=== PATIENT | female | born 1960 | race Caucasian/White ===

== ENCOUNTER 2019-04-06 08:43 | Inpatient (IN) | payer SELFPAY ==
[~2019-04-06] VITALS: Ht 172.7 cm; Wt 95.6 kg
[2019-04-06] VITALS (10 sets, daily range): BP systolic 39–109; BP diastolic 24–48
[2019-04-06] MEDS ORDERED: PANTOPRAZOLE 80 MG in SODIUM CHLORIDE 0.9% 100 ML IV SCH (08:56)
[2019-04-06] MEDS ORDERED: PANTOPRAZOLE 80 MG in SODIUM CHLORIDE 0.9% 50 ML IVPB ONE (08:56)
[2019-04-06] MEDS ORDERED: SODIUM CHLORIDE FLUSH 10ML SYR IVF ONE (09:00)
[2019-04-06] MEDS ORDERED: SODIUM CHLORIDE 0.9% 1,000ML IVBOLUS ONE ×2 (09:00→10:30)
[2019-04-06] MEDS ORDERED: OCTREOTIDE 100MCG/ML, 1ML (0.1MG/ML) IV ONE (09:00)
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
[2019-04-06] MEDS ORDERED: OCTREOTIDE 100MCG/ML, 1ML (0.1MG/ML) ONE (09:21)
--- NOTE | 2019-04-06 09:32 | NUR ---
PT MEDICATED PER MAR. PT CLEANSED AND SOILED CLOTHING REMOVED, PANTS THROWN IN TRASH PER PT REQUEST. GUAIC COMPLETED, + OCCULT STOOL AND ALSO STOOL WITH BRIGHT RIGHT BLOOD, ERMD UPDATED.
[2019-04-06 09:37] LABS: MEAN CORPUSCULAR HEMOGLOBIN 37.8 pg (27.0-34.8); MEAN CORPUSCULAR HGB CONC 33.5 g/dL (32.4-35.8); MEAN CORPUSCULAR VOLUME 112.8 fL (80-100); MEAN PLATELET VOLUME 8.9 fL (7.4-10.4); PLATELET COUNT 80 x10^3/uL (130-400); RED BLOOD COUNT 1.58 x10^6/uL (3.82-5.3); RED CELL DISTRIBUTION WIDTH 17.4 % (9.6-15.2)
[2019-04-06 09:41] LABS: ALANINE AMINOTRANSFERASE 37 U/L (12-78); ALBUMIN 1.1 g/dL (3.4-5.0); ANION GAP 22 mmol/L (5-15); CALCIUM 7.6 mg/dL (8.5-10.1); CHLORIDE 109 mmol/L (98-107); CREATININE 1.53 mg/dL (0.55-1.02)
[2019-04-06 09:46] LABS: ALKALINE PHOSPHATASE 176 U/L (45-117); BILIRUBIN,TOTAL 10.3 mg/dL (0.2-1.0); TOTAL PROTEIN 5.2 g/dL (6.4-8.2)
[2019-04-06 09:49] LABS: MD YES
[2019-04-06 09:55] LABS: BAND#(MANUAL) 0.22 x10^3/uL; BANDS%(MANUAL) 2 % (0-7); BASOS#(MANUAL) 0.11 x10^3/uL (0-0.1); BASOS% (MANUAL) 1 % (0-1); LYMPH#(MANUAL) 0.76 x10^3/uL (1-3.4); LYMPHS% (MANUAL) 7 % (22-44); MONOS#(MANUAL) 0.43 x10^3/uL (0.3-2.7); MONOS% (MANUAL) 4 % (2-9); NRBC % (MANUAL) 1 % (0-1); SEG#(MANUAL) 9.29 x10^3/uL (1.8-6.8); SEGS% (MANUAL) 86 % (42-75)
[2019-04-06 09:56] LABS: ANISOCYTOSIS 1+; ROULEAUX 1+
--- NOTE | 2019-04-06 09:56 | NUR ---
LAB CALLED WITH CRITICAL RESULTS HGB 6.0/HCT 17.8 ER PROVIDER MADE AWARE. PT FINISHED FLUID BOLUS, PT STILL WITH BP 89/39, WILL UPDATE PROVIDER. PROTONIX BOLUS AND GTT STARTED
[2019-04-06 09:58] LABS: <PLATELET ESTIMATE> DECREASED; <PLT MORPHOLOGY> NORMAL PLT MORPH; POLYCHROMASIA 1+
[2019-04-06 09:59] LABS: OVALOCYTES 1+
[2019-04-06 10:01] LABS: INTERNATIONAL NORMALIZED RATIO 2.74 (0.93-1.1)
--- NOTE | 2019-04-06 10:29 | NUR ---
ADDITIONAL BOLUS HUNG, PT STILL WITH BP 83/30. PRBC HUNG AT THIS TIME
[2019-04-06 10:33] LABS: PROTHROMBIN TIME 29.3 Seconds (9.6-11.5)
--- NOTE | 2019-04-06 10:50 | NUR ---
PT TO CT AT THIS TIME
[2019-04-06] MEDS ORDERED: OCTREOTIDE 500 MCG in SODIUM CHLORIDE 0.9% 99 ML IV PRN ×2 (11:00→23:00)
[2019-04-06] MEDS ORDERED: SODIUM CHLORIDE FLUSH 10ML SYR IVF PRN (11:00)
--- NOTE | 2019-04-06 11:10 | NUR ---
PT BACK FROM IMAGING, PRBC COMPLETED, FFP BEGAN. REQUEST SENT TO PHARM FOR OCTREOTIDE GTT ORDERED BY GI
[2019-04-06] MEDS ORDERED: OMNIPAQUE 350 MG/ML, 100ML BOTTLE ONE (11:20)
[2019-04-06] MEDS ORDERED: CEFTRIAXONE PMX 2GM/50ML 50 ML ONE (12:07)
[2019-04-06] MEDS: CEFTRIAXONE PMX 2GM/50ML 50 ML IV SCH (12:18)
--- NOTE | 2019-04-06 12:28 | NUR ---
LUNCH RN: VIRIDIANA BENITEZ PER APR. VARIFIED WITH ABOUT ABX, ORDERED FOR UPCOMING SCOPE PROPHALACTICALLY. VS TACHY HR, OTHER VS WNL. PT PLACED ON BED HOLLIDAY PER REQUEST. CHAPSTICK GIVEN FOR COMFORT. PT INFORMED OF NPO STATUS. CALL LIGHT WITHIN REACH. HOSPITAL BED ORDERED
--- NOTE | 2019-04-06 12:51 | NUR ---
PT PLACED ON HOSPITAL BED. CALL LIGHT IN REACH. VSS. NO OTHER NEEDS AT THIS TIME
--- NOTE | 2019-04-06 13:24 | NUR ---
DR RIVERA CALLED FOR ADDITIONAL ORDERS.
[2019-04-06] MEDS ORDERED: SODIUM CHLORIDE 0.9% 1,000 ML IV SCH (13:28)
[2019-04-06] MEDS ORDERED: BISACODYL 10 MG SUPP PR PRN (13:30)
[2019-04-06] MEDS ORDERED: POLYETHYLENE GLYCOL 17 GM PACKET PO PRN (13:30)
[2019-04-06] MEDS ORDERED: ACETAMINOPHEN 325 MG TABLET PO PRN (13:30)
[2019-04-06] MEDS ORDERED: OXYcodone IR 5MG TABLET PO PRN (13:30)
[2019-04-06] MEDS ORDERED: ONDANSETRON 2MG/ML, 2ML IVPush PRN (13:30)
--- NOTE | 2019-04-06 13:58 | NUR ---
ATTEMPTED TO CALL REPORT, RN TO CALL BACK
[2019-04-06] MEDS ORDERED: DEXTROSE 50%, 50ML SYRINGE IVPush ONE ×2 (14:20→16:30)
[2019-04-06] MEDS ORDERED: DEXTROSE 50%, 50ML SYRINGE ONE (14:20)
--- NOTE | 2019-04-06 14:20 | NUR ---
[facility] CHECKED READING OF 28, DR RIVERA CALLED. ORDER FOR AMP D50. PT MEDICATED PER APR. PT THEN WITH LARGE INCONTINENT BM IN BED, PT CLEANED AND REPOSITIONED. FSBS RECHECKED 138 READ. RECIEVING RN UPDATED
[2019-04-06] MEDS ORDERED: MIDAZOLAM 1 MG/ML, 5ML ONE (15:10)
[2019-04-06] MEDS ORDERED: PROPOFOL 10 MG/ML, 100ML IV ONE (15:10)
[2019-04-06] MEDS ORDERED: ETOMIDATE 20 MG/10 ML ONE (15:10)
[2019-04-06] MEDS ORDERED: PHENOBARBITAL SODIUM 640 MG in SODIUM CHLORIDE 0.9% 50 ML IVPB ONE (15:30)
[2019-04-06] MEDS ORDERED: POTASSIUM CHLORIDE 20 MEQ, MAGNESIUM SULFATE 1 GM, THIAMINE 200 MG, FOLIC ACID 1 MG, MV... IV SCH (15:30)
[2019-04-06] MEDS ORDERED: POTASSIUM CHLORIDE 20 MEQ, MAGNESIUM SULFATE 1 GM, FOLIC ACID 1 MG, THIAMINE 200 MG, MV... IV SCH (15:30)
[2019-04-06] MEDS ORDERED: PHARMACY INSTRUCTION MC PRN ×4 (15:30)
[2019-04-06] MEDS ORDERED: SODIUM BICARBONATE 1 MEQ/ML, 50ML VIAL ONE (16:24)
[2019-04-06] MEDS: SODIUM BICARBONATE 1 MEQ/ML, 50ML VIAL IVPush SCH ×2 (16:28→19:08)
[2019-04-06] MEDS ORDERED: SODIUM BICARBONATE 8.4% 150 MEQ in DEXTROSE 5% 1,000 ML IV SCH (16:30)
[2019-04-06] MEDS ORDERED: PROPOFOL 100 ML IV PRN (16:50)
[2019-04-06] MEDS ORDERED: LIDOCAINE-MPF 1%, 2ML ENDO PRN (17:00)
[2019-04-06] MEDS ORDERED: FENTANYL PF 100 MCG/2ML IVPush PRN (17:00)
[2019-04-06] MEDS ORDERED: PHARMACY MAY ADJ FOR RENAL FX MC SCH (17:00)
[2019-04-06] MEDS ORDERED: NOREPINEPHRINE 1 MG/ML, 4ML ONE ×2 (17:01→17:10)
[2019-04-06] MEDS ORDERED: SODIUM BICARBONATE 1 MEQ/ML, 50ML VIAL IVPush SCH (19:00)
[2019-04-06] MEDS ORDERED: VASOPRESSIN 20 UNIT in SODIUM CHLORIDE 0.9% 99 ML IV PRN (19:30)
[2019-04-06] MEDS: VASOPRESSIN 20 UNIT in SODIUM CHLORIDE 0.9% 99 ML IV PRN (20:24)
[2019-04-06] MEDS: PANTOPRAZOLE 80 MG in SODIUM CHLORIDE 0.9% 100 ML IV SCH (21:29)
[2019-04-06] MEDS ORDERED: SODIUM BICARB 8.4%, 50ML SYRINGE IVPush STA (21:32)
[2019-04-06] MEDS ORDERED: PHENYLEPHRINE 50 MG in SODIUM CHLORIDE 0.9% 245 ML IV PRN (22:00)
[2019-04-06] MEDS ORDERED: ALBUMIN HUMAN 5% 500 ML IV ONE (22:00)
[2019-04-06] MEDS: SODIUM BICARBONATE 8.4% 150 MEQ in DEXTROSE 5% 1,000 ML IV SCH (23:41)
[2019-04-06] MEDS: NOREPINEPHRINE 8 MG in SODIUM CHLORIDE 0.9% 242 ML IV PRN (23:42)
[2019-04-07] VITALS (14 sets, daily range): BP systolic 90–165; BP diastolic 24–97
[2019-04-07] MEDS: VASOPRESSIN 20 UNIT in SODIUM CHLORIDE 0.9% 99 ML IV PRN (02:58)
[2019-04-07] MEDS: NOREPINEPHRINE 8 MG in SODIUM CHLORIDE 0.9% 242 ML IV PRN ×2 (04:19→08:35)
[2019-04-07] MEDS ORDERED: DEXTROSE 50%, 50ML SYRINGE IVPush ONE (05:30)
[2019-04-07 05:50] LABS: MICROSCOPIC INDICATED
[2019-04-07 05:51] LABS: CULTURE INDICATED? YES
[2019-04-07] MEDS: SODIUM BICARBONATE 8.4% 150 MEQ in DEXTROSE 5% 1,000 ML IV SCH (06:02)
[2019-04-07 06:20] LABS: MEAN CORPUSCULAR HEMOGLOBIN 37.5 pg (27.0-34.8); MEAN CORPUSCULAR HGB CONC 35.5 g/dL (32.4-35.8); MEAN CORPUSCULAR VOLUME 105.8 fL (80-100); MEAN PLATELET VOLUME 9.2 fL (7.4-10.4); RED BLOOD COUNT 1.34 x10^6/uL (3.82-5.3)
[2019-04-07 06:22] LABS: ALANINE AMINOTRANSFERASE 585 U/L (12-78); ALBUMIN 1.3 g/dL (3.4-5.0); ANION GAP 26 mmol/L (5-15); CALCIUM 6.2 mg/dL (8.5-10.1); CHLORIDE 107 mmol/L (98-107); CREATININE 2.91 mg/dL (0.55-1.02)
[2019-04-07 06:23] LABS: RED CELL DISTRIBUTION WIDTH 25.1 % (9.6-15.2)
[2019-04-07 06:24] LABS: PLATELET COUNT 32 x10^3/uL (130-400)
[2019-04-07] MEDS ORDERED: CALCIUM GLUCONATE 4.6 MEQ in SODIUM CHLORIDE 0.9% 100 ML IV ONE (06:30)
[2019-04-07] MEDS ORDERED: INSULIN REGULAR 100 UNITS/ML, 3ML VIAL IVPush ONE (06:30)
[2019-04-07] MEDS ORDERED: SODIUM POLYSTYRENE SULFONATE ORAL SUSP PO ONE (06:30)
[2019-04-07] MEDS ORDERED: SODIUM BICARBONATE 1 MEQ/ML, 50ML VIAL IVPush ONE (06:30)
[2019-04-07 06:31] LABS: ALKALINE PHOSPHATASE 137 U/L (45-117); BILIRUBIN,TOTAL 8.7 mg/dL (0.2-1.0); TOTAL PROTEIN 3.4 g/dL (6.4-8.2)
[2019-04-07 06:41] LABS: MD YES
[2019-04-07 06:44] LABS: ANISOCYTOSIS 1+; BAND#(MANUAL) 0.45 x10^3/uL; BANDS%(MANUAL) 3 % (0-7); LYMPH#(MANUAL) 2.24 x10^3/uL (1-3.4); LYMPHS% (MANUAL) 15 % (22-44); METAMYELOCYTES# (MANUAL) 0.15 x10^3/uL (0-0); METAMYELOCYTES% (MANUAL) 1 % (0-1); MONOS#(MANUAL) 0.45 x10^3/uL (0.3-2.7); MONOS% (MANUAL) 3 % (2-9); NRBC % (MANUAL) 2 % (0-1); REACTIVE LYMPHS # (MANUAL) 0.15 x10^3/uL (0-0); REACTIVE LYMPHS % (MANUAL) 1 % (0-0); SEG#(MANUAL) 11.47 x10^3/uL (1.8-6.8); SEGS% (MANUAL) 77 % (42-75)
[2019-04-07 06:45] LABS: <PLATELET ESTIMATE> DECREASED; <PLT MORPHOLOGY> NORMAL PLT MORPH; HYPOCHROMIA 1+; OVALOCYTES 1+; POLYCHROMASIA 1+
[2019-04-07] MEDS ORDERED: PHYTONADIONE 10 MG in SODIUM CHLORIDE 0.9% 50 ML IV ONE (07:30)
[2019-04-07] MEDS: PANTOPRAZOLE 80 MG in SODIUM CHLORIDE 0.9% 100 ML IV SCH (07:38)
[2019-04-07] MEDS ORDERED: SENNA/DOCUSATE TABLET PO SCH (09:00)
[2019-04-07] MEDS: CEFTRIAXONE PMX 2GM/50ML 50 ML IV SCH (10:46)
[2019-04-07] MEDS ORDERED: LORazepam 2 MG/ML, 1ML IV ONE (11:30)
[2019-04-07] MEDS ORDERED: LORazepam 2 MG/ML, 1ML IVPush PRN (11:30)
[2019-04-07] MEDS ORDERED: MORPHINE SULFATE 4 MG/ML, 1ML IV ONE (11:30)
[2019-04-07] MEDS ORDERED: MORPHINE SULFATE 4 MG/ML, 1ML IVPush PRN (11:30)
== END 2019-04-07 19:04 | disposition expired | DRG 208 ==
LOC: ED 09:41 → EDIP 11:03 → CCU 14:46 → CSU 04-07 14:10
PROVIDERS: ADMIT Internal Medicine; ATTEND Internal Medicine
PROC: 5A1935Z Respiratory Ventilation, Less than 24 Consecutive Hours (ICD-10-PCS; 2019-04-06)
PROC: 30233K1 Transfusion of Nonautologous Frozen Plasma into Peripheral Vein, Percutaneous Approach (ICD-10-PCS; 2019-04-06)
PROC: 30233N1 Transfusion of Nonautologous Red Blood Cells into Peripheral Vein, Percutaneous Approach (ICD-10-PCS; 2019-04-06)
PROC: 30233R1 Transfusion of Nonautologous Platelets into Peripheral Vein, Percutaneous Approach (ICD-10-PCS; 2019-04-06)
PROC: 0BH17EZ Insertion of Endotracheal Airway into Trachea, Via Natural or Artificial Opening (ICD-10-PCS; 2019-04-06)
PROC: 0T9B70Z Drainage of Bladder with Drainage Device, Via Natural or Artificial Opening (ICD-10-PCS; principal; 2019-04-07)
PROC: 02HV33Z Insertion of Infusion Device into Superior Vena Cava, Percutaneous Approach (ICD-10-PCS; 2019-04-07)
DX: J96.01 Acute respiratory failure with hypoxia (principal); E43 Unspecified severe protein-calorie malnutrition; K25.4 Chronic or unspecified gastric ulcer with hemorrhage; G93.41 Metabolic encephalopathy; N17.0 Acute kidney failure with tubular necrosis; D62 Acute posthemorrhagic anemia; E87.2 Acidosis; F10.239 Alcohol dependence with withdrawal, unspecified; K76.6 Portal hypertension; Z99.11 Dependence on respirator [ventilator] status; Z66 Do not resuscitate; E87.5 Hyperkalemia; F10.229 Alcohol dependence with intoxication, unspecified; I10 Essential (primary) hypertension; I73.9 Peripheral vascular disease, unspecified; K70.11 Alcoholic hepatitis with ascites; K70.31 Alcoholic cirrhosis of liver with ascites; R57.8 Other shock; K70.40 Alcoholic hepatic failure without coma; Z51.5 Encounter for palliative care; Z82.49 Family history of ischemic heart disease and other diseases of the circulatory system; Z90.49 Acquired absence of other specified parts of digestive tract; Z87.891 Personal history of nicotine dependence; Z98.51 Tubal ligation status
CPT/HCPCS: 36415; 36600; 96365; 96366; 96368; 96375; 99291; J7042; 36430; 71045; 74174; 80053; 80307; 81001; 82140; 82803; 82962; 83690; 83735; 84100; 84132; 84478; 85018; 85025; 85610; 85730; 86850; 86900; 86923; 87040; 87070; 87081; 87086; 87205; 93005; 94002; 94003; G0378; J0610; J0696; J1815; J2250; J2354; J2704; J3411; J3430; J3475; J3480; J7070; P9045; Q9967; C9113; J1642; J2060; J2270; J2370; J7030; J7050; P9016; P9017; P9035